=== PATIENT | female | born 1975 | race African-American/Black ===

== ENCOUNTER 2024-05-25 14:08 | Emergency (ER) | payer OTHER ==
[~2024-05-25] VITALS: Ht 160 cm; Wt 63.0 kg
[2024-05-25 14:10] VITALS: BP 136/82; PULSE 90; RESP 18; TEMP 98.7; O2SAT 100
== END 2024-05-25 16:22 | disposition left against medical advice (07) ==
LOC: ER 14:29
DX: R51.9 Headache, unspecified (principal); Z53.21 Procedure and treatment not carried out due to patient leaving prior to being seen by health care provider